=== PATIENT | male | born 1990 | race Caucasian/White ===

== ENCOUNTER 2017-05-12 15:17 | Emergency (ER) | payer SELFPAY ==
[~2017-05-12] VITALS: Ht 182.9 cm; Wt 73.7 kg
[~2017-05-12 15:17] MED LIST: MINO50CA PO
[2017-05-12 15:18] VITALS: BP 135/59; PULSE 85; RESP 18; TEMP 98.6; O2SAT 97
--- NOTE | 2017-05-12 15:58 | RADRPT ---
EXAM DATE/TIME: 05/12/2017 15:37 [facility] COMPARISON: No previous studies available for comparison. INDICATIONS : Fell off ladder last night MEDICAL HISTORY : None. SURGICAL HISTORY : None. ENCOUNTER: Initial ACUITY: 1 day PAIN SCORE: 9/10 LOCATION: Right ankle FINDINGS: Steeply oblique fracture involves the distal fibula with approximately 3 mm of lateral displacement. There is associated slight lateral subluxation of the ankle mortise. There is questionable slightly d epressed subchondral fracture of the central to posterior weightbearing surface of the tibial plafond . There is lateral predominant soft tissue swelling. CONCLUSION: Mildly displaced acute distal fibular fracture with slight widening medially of the ankle mortise. Qu estional subchondral fracture of the tibial plafond and a thin cut ankle CT is recommended. North Zaidi MD on May 12, 2017 at 15:53 Board Certified Radiologist. This report was verified electronically.
--- NOTE | 2017-05-12 15:59 | RADRPT ---
EXAM DATE/TIME: 05/12/2017 15:42 [facility] COMPARISON: No previous studies available for comparison. INDICATIONS : Fell off ladder last night MEDICAL HISTORY : None. SURGICAL HISTORY : None. ENCOUNTER: Initial ACUITY: 1 day PAIN SCORE: 9/10 LOCATION: Right foot FINDINGS: Three view examination of the right foot demonstrates no soft tissue swelling, dislocation, or fractu re. The tarsal bones appear intact. The interphalangeal and metatarsophalangeal joints are intact. The calcaneus is intact. Bony mineralization is normal. Patient has pes planus. CONCLUSION: Intact right foot. Pes planus. North Zaidi MD on May 12, 2017 at 15:56 Board Certified Radiologist. This report was verified electronically.
--- NOTE | 2017-05-12 16:02 | PD ---
HPI Chief Complaint: Musculoskeletal Complaint Time Seen by Provider: 15:22 Travel History International Travel<30 days: No Contact w/Intl Traveler<30days: No Traveled to known affect area: No History of Present Illness HPI 27-year-old male here for evaluation of right ankle and foot pain status post fall from a ladder yesterday evening. He reports he was approximately 3 rungs up when he fell backwards his ankle was twisted in the latter. He reports falling onto his right elbow intact. He denies head injury or loss of consciousness. He is not anticoagulated. He denies headache, neck pain, chest pain, shortness breath, abdominal pain, back pain, paresthesia or weakness in extremities. He has pain in the ankle and foot which is constant and nonradiating. Pain severity 8/10. Worse with weightbearing and movement and relieved with rest PFSH Past Medical History Medical History: Denies Significant Hx Social History Tobacco Use: No Allergies-Medications (Allergen,Severity, Reaction): Coded Allergies: No Known Allergies (Verified Allergy, Severe, 05/12/17) Reported Meds & Prescriptions Reported Meds & Active Scripts Active Ultram (Tramadol HCl) 50 Mg Tab 50 Mg PO Q6H PRN Review of Systems Except as stated in HPI: all other systems reviewed are Neg Physical Exam Narrative GENERAL: Alert, well-appearing male in no acute distress SKIN: Warm and dry., As is noted to the right ankle HEAD: Atraumatic. Normocephalic. EYES: Pupils equal and round. No scleral icterus. No injection or drainage. ENT: No nasal bleeding or discharge. Mucous membranes pink and moist. NECK: Trachea midline. No JVD. No cervical midline tenderness CARDIOVASCULAR: Regular rate and rhythm. CHEST: No rib or chest wall tenderness RESPIRATORY: No accessory muscle use. Clear to auscultation. Breath sounds equal bilaterally. GASTROINTESTINAL: Abdomen soft, non-tender, nondistended. Hepatic and splenic margins not palpable. MUSCULOSKELETAL: Extremities without clubbing, cyanosis. No obvious deformities. Right elbow: Superficial abrasions. Nontender. Full range of motion. Right lower extremity: Notable swelling and tenderness to the medial lateral aspect of the ankle and dorsal aspect of the foot. 2+ dorsal pedis pulses. Brisk cap refill. Normal sensation. BACK: No CVA tenderness. No rash. No point tenderness on palpation of the spine. NEUROLOGICAL: Awake and alert. No obvious cranial nerve deficits. Motor grossly within normal limits. Five out of 5 muscle strength in the arms and legs. Normal speech. PSYCHIATRIC: Appropriate mood and affect; insight and judgment normal. Data Data Last Documented VS Vital Signs Date Time Temp Pulse Resp B/P (MAP) Pulse Ox O2 Delivery O2 Flow Rate FiO2 05/12/17 15:18 98.6 85 18 135/59 (84) 97 Orders Orders Ankle, Complete ([id number]) (05/12/17 ) Foot, Complete ([id number]) (05/12/17 ) Ct Ankle W/O Contrast (05/12/17 ) Ketorolac Inj (Toradol Inj) (05/12/17 16:15) Splint Or Brace Apply/Monitor (05/12/17 17:21) Crutches (05/12/17 ) Mandatory Outpatient Referral (05/12/17 17:24) Fiberglass Short Leg Splint Ad (05/12/17 ) Fiberglass Sugartong Sp Ad Sl (05/12/17 ) MDM Medical Decision Making Medical Screen Exam Complete: Yes Emergency Medical Condition: Yes Differential Diagnosis Ankle fracture, ankle sprain, metatarsal fracture, calcaneus fracture Narrative Course Any 27-year-old male here with right ankle and foot pain status post twisting injury last night. Diagnosis Primary Impression: Fracture of distal fibula Qualified Codes: S82.831A - Other fracture of upper and lower end of right fibula, initial encounter for closed fracture Referrals: Orthopedist Additional Instructions: KEEP THE SPLINT IN PLACE UNTIL FOLLOW UP WITH THE ORTHOPEDIC Use crutches for weight bearing. Ice & elevate the extremity. take ibuprofen 800 mg every 6 hours as needed for pain. Take ultram for severe pain return if you develop new or worsening symptoms Scripts Tramadol (Ultram) 50 Mg Tab 50 MG PO Q6H Y for PAIN, #15 TAB 0 Refills Prov: Pedrito Persaud MD 05/12/17 Disposition: 01 DISCHARGE HOME Condition: Stable Bridget Galloway May 12, 2017 16:02
[2017-05-12] MEDS ORDERED: KETOROLAC TROMETHAMINE 60 MG/2 ML (IM) VIAL IM ONE (16:15)
--- NOTE | 2017-05-12 17:13 | RADRPT ---
EXAM DATE/TIME: 05/12/2017 16:29 [facility] COMPARISON: No previous studies available for comparison. INDICATIONS : Right ankle pain after fall yesterday. RADIATION DOSE: 5.99 CTDIvol (mGy) MEDICAL HISTORY : None SURGICAL HISTORY : None. ENCOUNTER: Initial ACUITY: 2 days PAIN SCALE: 7/10 LOCATION: Right ankle TECHNIQUE: Volumetric scanning of the ankle was performed. Using automated exposure control and adjustment of t he mA and/or kV according to patient size, radiation dose was kept as low as reasonably achievable to obtain optimal diagnostic quality images. DICOM format image data is available electronically for review and comparison. FINDINGS: Mildly comminuted oblique fracture seen of the distal right fibula with approximately 3 mm of lateral displacement. By CT, no perceptible malalignment of the ankle mortise. Probable sprain of the calcan eofibular, anterior talofibular ligament and distal syndesmotic ligament but by CT no clear rupture. Deltoid ligament complex also grossly intact. Approximately 15 x 13 mm area of chronic osteochondral fragmentation with sclerosis and cystic change seen of the posterior weight-bearing surface of the distal tibial plafond. Within this is a 2 mm thi ck disc shaped in situ sclerotic fragment that measures approximately 8 x 7 mm in size. No displaced fragment. No acute abnormality is seen of the right tibia. CONCLUSION: 1. 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 There is no acute fracture of the distal tibia. 2. Minimally displaced, mildly comminuted fracture of the distal fibula. No significant widening of t he ankle mortise or definite ligament rupture by CT. North Zaidi MD on May 12, 2017 at 17:06 Board Certified Radiologist. This report was verified electronically.
[2017-05-12] MEDS ORDERED: TRAM50 PO (17:26)
== END 2017-05-12 17:42 | disposition home or self-care (01) ==
LOC: PHEFT 15:17
DX: S82.831A Other fracture of upper and lower end of right fibula, initial encounter for closed fracture (principal); W11.XXXA Fall on and from ladder, initial encounter
CPT/HCPCS: 29515; 73610; 73630; 73700; 96372; 99285; E0113; J1885